=== PATIENT | male | born 1955 | race Caucasian/White ===

== ENCOUNTER → 2019-04-06 | Outpatient (CLI) | payer OTHER ==
[~2019-04-06] MED LIST: BACTRIM DS TAB1 EAC1 PO; DACOGEN50 MG IV; DOXYCYCLINE 10100 MG PO; LUMIGAN2.5 M1 OP; MARINOL2.5 MG PO; MELATONIN5 MG PO; NOXAFIL100 MG PO; POTASSIUM20 PO; PROTONIX 20 MG20 MG PO; REMERON15 M2 PO; TIMOLOL MALEATE5 M2 OPHTHALMIC; ZOVIRAX200 MG PO; [UNRECOGNIZED DRUG - OTHER] PO
== END ==
LOC: CAT 10:11 → ULTRA 10:11 → CAT 13:07
DX: K76.9 Liver disease, unspecified (principal); R91.1 Solitary pulmonary nodule; K57.30 Diverticulosis of large intestine without perforation or abscess without bleeding; I82.621 Acute embolism and thrombosis of deep veins of right upper extremity